=== PATIENT | female | born 1970 ===

== ENCOUNTER 2025-08-22 10:30 | Inpatient (IN) | payer OTHER ==
[~2025-08-22] VITALS: Ht 91.4 cm; Wt 68.9 kg
[2025-08-30] MEDS ORDERED: CEFTRIAXONE SODIUM 2,000 MG VIAL IV ONE (11:00)
[2025-08-30] MEDS ORDERED: METRONIDAZOLE/SODIUM CHLORIDE 500 MG/100 ML PIGGYBACK IV ONE (11:00)
[2025-08-30] MEDS ORDERED: BUPIVACAINE HCL 30 ML VIAL IV ONE (11:00)
[2025-08-30] MEDS ORDERED: LIDOCAINE HCL 1%/EPINEPHRINE 20ML VIAL IJ ONE (11:00)
[2025-08-30] MEDS ORDERED: OxyCODONE HCL 5 MG TABLET (ROXICODONE) PO PRN (14:30)
[2025-08-30] MEDS ORDERED: MORPHINE SULFATE 4 MG/ML CARTRIDGE IV PRN (14:30)
[2025-08-30] MEDS ORDERED: DEXTROSE 50 % IN WATER 0.5 G/ML DISP.SYRIN IV PRN (14:30)
[2025-08-30] MEDS ORDERED: ONDANSETRON HCL 2 MG/ML VIAL IV PRN (14:30)
[2025-08-30] MEDS ORDERED: RINGERS SOLUTION,LACTATED 1,000 ML IV SCH (14:30)
[2025-08-30 15:26] LABS: BASO % 0.2 % (0.1-1.2); EOS # 0.00 (0.04-0.54); EOS % 0.0 % (0.7-7.0); LYMPH # 1.22 (1.18-3.74); LYMPH % 6.6 % (19.3-53.1); MEAN PLATELET VOLUME 9.00 fl (9.4-12.4); MONO # 0.86 (0.24-0.82); MONO % 4.7 % (4.7-12.5); NEUT # 16.29 (1.56-6.13); NEUT % 88.1 % (34.0-71.1); RED CELL DISTRIBUTION WIDTH 14.7 % (11.6-14.4)
[2025-08-30 15:56] LABS: BUN CREA RATIO 18.0 (7.0-25.0); CREATININE SERUM 0.6 mg/dL (0.55-1.02); GFR 104.18; GLUCOSE FASTING 140.0 mg/dL (65-100); OSMOLALITY SERUM 279.0 MOSM/KG (275-295)
[2025-08-30] MEDS ORDERED: GABAPENTIN 300 MG CAPSULE PO SCH (17:00)
[2025-08-30 20:00] VITALS: BP 157/83; O2SAT 95
[2025-08-30] MEDS ORDERED: ACETAMINOPHEN 500 MG GEL..CAP PO SCH (20:00)
[2025-08-30] MEDS ORDERED: FAMOTIDINE/PF 20 MG/2 ML VIAL IV PUSH SCH (21:00)
[2025-08-31 00:30] VITALS: BP 134/81; O2SAT 99
[2025-08-31 06:17] LABS: BASO % 0.3 % (0.1-1.2); EOS # 0.00 (0.04-0.54); EOS % 0.0 % (0.7-7.0); LYMPH # 2.47 (1.18-3.74); LYMPH % 16.3 % (19.3-53.1); MEAN PLATELET VOLUME 9.10 fl (9.4-12.4); MONO # 1.30 (0.24-0.82); MONO % 8.6 % (4.7-12.5); NEUT # 11.31 (1.56-6.13); NEUT % 74.4 % (34.0-71.1); RED CELL DISTRIBUTION WIDTH 14.8 % (11.6-14.4)
[2025-08-31 06:39] LABS: BUN CREA RATIO 10.0 (7.0-25.0); CREATININE SERUM 0.51 mg/dL (0.55-1.02); GFR 125.67; GLUCOSE FASTING 115.0 mg/dL (65-100); OSMOLALITY SERUM 278.0 MOSM/KG (275-295)
[2025-08-31 09:21] VITALS: BP 155/91; O2SAT 96
[2025-08-31 16:00] VITALS: BP 126/77; O2SAT 98
[2025-08-31] MEDS ORDERED: ENOXAPARIN SODIUM 40 MG/0.4 ML SYRINGE SUBCUTANEO SCH (17:00)
[2025-09-01 01:18] VITALS: BP 109/71; O2SAT 98
[2025-09-01 07:59] LABS: BASO % 0.4 % (0.1-1.2); EOS # 0.09 (0.04-0.54); EOS % 0.7 % (0.7-7.0); LYMPH # 2.58 (1.18-3.74); LYMPH % 19.8 % (19.3-53.1); MEAN PLATELET VOLUME 9.10 fl (9.4-12.4); MONO # 1.11 (0.24-0.82); MONO % 8.5 % (4.7-12.5); NEUT # 9.17 (1.56-6.13); NEUT % 70.2 % (34.0-71.1); RED CELL DISTRIBUTION WIDTH 14.9 % (11.6-14.4)
[2025-09-01 08:00] VITALS: BP 170/90; O2SAT 98
[2025-09-01 08:58] LABS: BUN CREA RATIO 15.0 (7.0-25.0); CREATININE SERUM 0.41 mg/dL (0.55-1.02); GFR 161.66; GLUCOSE FASTING 94.0 mg/dL (65-100); OSMOLALITY SERUM 279.0 MOSM/KG (275-295)
[2025-09-01] MEDS ORDERED: POTASSIUM PHOS,M-BASIC-D-BASIC 18 MM in 0.9 % SODIUM CHLORIDE 500 ML IV NR (12:00)
[2025-09-01 16:51] VITALS: BP 126/87; O2SAT 97
[2025-09-01] MEDS ORDERED: ENOXAPARIN SODIUM 40 MG/0.4 ML SYRINGE SUBCUTANEO SCH (17:00)
[2025-09-02] VITALS: BP 131/74; O2SAT 96
[2025-09-02 09:12] VITALS: BP 147/84; O2SAT 97
[2025-09-02 16:43] VITALS: BP 117/81; O2SAT 99
[2025-09-03 00:38] VITALS: BP 1328/76; O2SAT 98
[2025-09-03 08:51] VITALS: BP 133/80; O2SAT 97
[2025-09-03 16:38] VITALS: BP 131/84; O2SAT 95
[2025-09-04 00:59] VITALS: BP 135/72; O2SAT 99
[2025-09-04 08:00] VITALS: BP 128/84; O2SAT 100
[2025-09-04] MEDS ORDERED: LACTOBACILLUS ACIDOPHILUS 1 CAP CAP PO STA (13:24)
[2025-09-04 16:30] VITALS: BP 134/80; O2SAT 97
[2025-09-04 19:17] LABS: ob POSITIVE (NEGATIVE)
[2025-09-04 19:18] LABS: FECAL LEUKOCYTES POSITIVE (NEGATIVE)
[2025-09-05 00:30] VITALS: BP 135/77; O2SAT 100
[2025-09-05 08:00] VITALS: BP 118/75; O2SAT 96
[2025-09-05] MEDS ORDERED: LACTOBACILLUS ACIDOPHILUS 1 CAP CAP PO SCH (09:00)
[2025-09-05 16:00] VITALS: BP 135/77; O2SAT 99
[2025-09-06] VITALS: BP 106/61; O2SAT 97
[2025-09-06 07:28] LABS: BASO % 0.6 % (0.1-1.2); EOS # 0.31 (0.04-0.54); EOS % 3.7 % (0.7-7.0); LYMPH # 2.72 (1.18-3.74); LYMPH % 32.7 % (19.3-53.1); MEAN PLATELET VOLUME 9.00 fl (9.4-12.4); MONO # 0.78 (0.24-0.82); MONO % 9.4 % (4.7-12.5); NEUT # 4.35 (1.56-6.13); NEUT % 52.3 % (34.0-71.1); RED CELL DISTRIBUTION WIDTH 14.4 % (11.6-14.4)
[2025-09-06 07:53] LABS: BUN CREA RATIO 18.0 (7.0-25.0); CREATININE SERUM 0.4 mg/dL (0.55-1.02); GFR 166.33; GLUCOSE FASTING 105.0 mg/dL (65-100); OSMOLALITY SERUM 280.0 MOSM/KG (275-295)
[2025-09-06 08:29] VITALS: BP 115/78; O2SAT 95
[2025-09-06] MEDS ORDERED: NEURONTIN300 MG PO (11:55)
[2025-09-06] MEDS ORDERED: A/F PAIN RELIE500 MG PO (11:55)
[2025-09-06] MEDS ORDERED: INTESTINEX680 M1 PO (11:55)
== END 2025-09-06 15:25 | disposition home or self-care (01) | DRG 331 ==
LOC: SURH 08-30 07:00 → O/R 08-30 07:00 → SURH 08-30 10:30
PROVIDERS: Internal Medicine; Internal Medicine Geriatric Medicine; ADMIT Surgery; ATTEND Surgery
PROC: 07BC4ZZ Excision of Pelvis Lymphatic, Percutaneous Endoscopic Approach (ICD-10-PCS; 2025-08-30)
PROC: 0DTF4ZZ Resection of Right Large Intestine, Percutaneous Endoscopic Approach (ICD-10-PCS; principal; 2025-08-30 07:00)
DX: D12.3 Benign neoplasm of transverse colon (principal); D37.4 Neoplasm of uncertain behavior of colon; R59.0 Localized enlarged lymph nodes